=== PATIENT | female | born 1965 | race Caucasian/White ===

== ENCOUNTER 2022-05-26 15:02 | Emergency (ER) | payer OTHER ==
[~2022-05-26] VITALS: Ht 157.5 cm; Wt 67.7 kg
[~2022-05-26 15:02] MED LIST: MINERALS; MULTIPLE VITAMINS; ROPINIROLE HCL1 MG PO; ULTRAM50 MG PO; [UNRECOGNIZED DRUG - OTHER]
[2022-05-26] MEDS ORDERED: PREDNISONE 20 MG TAB PO STA (15:14)
[2022-05-26] MEDS ORDERED: KETOROLAC TROMETHAMINE 60 MG/2 ML VIAL IM STA (15:14)
[2022-05-26] MEDS ORDERED: PREDNISONE 20 MG TAB ONE (15:32)
[2022-05-26] MEDS ORDERED: KETOROLAC TROMETHAMINE 60 MG/2 ML VIAL ONE (15:32)
[2022-05-26] MEDS ORDERED: ONDANSETRON ODT4 MG PO (16:10)
[2022-05-26] MEDS ORDERED: ACETAMINOPHEN-1 EAC4 PO (16:10)
[2022-05-26] MEDS ORDERED: PREDNISONE20 MG PO (16:10)
== END 2022-05-26 16:27 | disposition home or self-care (01) ==
LOC: FSED 15:08
DX: S22.080A Wedge compression fracture of T11-T12 vertebra, initial encounter for closed fracture (principal); S32.010A Wedge compression fracture of first lumbar vertebra, initial encounter for closed fracture; X50.0XXA Overexertion from strenuous movement or load, initial encounter; Y92.89 Other specified places as the place of occurrence of the external cause
CPT/HCPCS: 72131; 96372; 99283; J1885; J7512